=== PATIENT | male | born 1985 | race African-American/Black ===

== ENCOUNTER 2019-06-18 18:10 | Emergency (ER) | payer SELFPAY ==
[2019-06-18] MEDS ORDERED: Alum Hydrox/Mag Hydrox/Simeth 30 ML, Lidocaine 2% 15 ML PO ONE ×2 (18:41)
[2019-06-18] MEDS ORDERED: Metoclopramide 10 MG Tab PO ONE (18:42)
--- NOTE | 2019-06-18 18:48 | EDM.PDOC ---
ED HPI GENERAL MEDICAL PROBLEM - General Chief Complaint: Abdominal Pain Stated Complaint: ABDOMINAL PAIN Time Seen by Provider: 06/18/19 18:19 Source of Information: Reports: Patient, Old Records, RN Notes Reviewed History Limitations: Reports: No Limitations - History of Present Illness INITIAL COMMENTS - FREE TEXT/NARRATIVE: Patient is a 33-year-old male who presents to the ED for evaluation of abdominal pain. Patient states he has not had a regular bowel movement for the past 3 or 4 days. He states he feels very bloated, and he feels as if his stomach feels unsettled or has diffuse stomach upset. He is still able to pass gas, and he states that this is very foul-smelling. He notes that he is having some increased belching, and he feels as if he is not digesting his food properly. He states that he is still belching up the meal from last night. He denies any abdominal pain, and characterizes just of generalized abdominal discomfort. He has been taking Pepto-Bismol, omeprazole, other over-the- counter laxatives for management of this, however it is not provided much relief. The patient states that he has been trying to increase his fiber intake , he states a regular today would include cereal in the morning with some apples and bananas, veggies salads, rice beans. He states he does not eat a lot of junk food, as he knows that can make you gain weight. He notes that he drinks around 6 or 7 bottles of the 16 ounce aldana daily. He denies any fevers or chills, chest pain, shortness of breath, vomiting or diarrhea, he complains mostly of nausea and generalized abdominal discomfort. He has not been seen in the clinic for this at all. He notes that this has been going on for around 6 months now. He used to be able to have a regular bowel movement daily, and now he states sometimes it can be up to one week for he has a bowel movement. Other Treatments [employer]: pepto-bismol; flaju( med) clear lax - Related Data Allergies Allergy/AdvReac Type Severity Reaction Status Date / Time No Known Allergies Allergy Verified 08/18/18 23:18 Home Meds: Home Meds . 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 Neurological History: Reports: Other (See Below) - Past Surgical History Neurological Surgical History: Reports: Thoracic Spine Social & Family History - Family History Family Medical History: Noncontributory - Tobacco Use Smoking Status *Q: Never Smoker - Caffeine Use Caffeine Use: Reports: None - Recreational Drug Use Recreational Drug Use: No ED ROS GENERAL - Review of Systems Review Of Systems: See Below Constitutional: Denies: Fever, Chills, Malaise, Decreased Appetite HEENT: Reports: No Symptoms Respiratory: Denies: Shortness of Breath Cardiovascular: Denies: Chest Pain Endocrine: Reports: No Symptoms GI/Abdominal: Reports: Abdominal Pain (generalized abd discomfort), Constipation (last BM 3 or 4 days ago), Nausea. Denies: Diarrhea, Vomiting : Denies: Dysuria Musculoskeletal: Reports: No Symptoms Skin: Reports: No Symptoms Neurological: Reports: No Symptoms Psychiatric: Reports: No Symptoms ED EXAM, GI/ABD - Physical Exam Exam: See Below Exam Limited By: No Limitations General Appearance: Alert, WD/WN, No Apparent Distress Throat/Mouth: Normal Inspection, Normal Lips, Normal Teeth, Normal Gums, Normal Oropharynx, Normal Voice, No Airway Compromise Respiratory/Chest: No Respiratory Distress, Lungs Clear, Normal Breath Sounds, No Accessory Muscle Use, Chest Non-Tender Cardiovascular: Normal Peripheral Pulses, Regular Rate, Rhythm, No Murmur GI/Abdominal Exam: Normal Bowel Sounds, Soft, Non-Tender, No Distention, No Mass Extremities: Normal Inspection, Normal Capillary Refill Neurological: Alert, Oriented, Normal Cognition, No Motor/Sensory Deficits Psychiatric: Normal Affect, Normal Mood Skin Exam: Warm, Dry, Intact, Normal Color, No Rash Course - Vital Signs Last Recorded V/S: Last Vital Signs Temp 98.6 F 06/18/19 18:24 Pulse 62 06/18/19 18:24 Resp 20 06/18/19 18:24 BP 111/74 06/18/19 18:24 Pulse Ox 98 06/18/19 18:24 - Orders/Labs/Meds Orders: Active Orders 24 hr Category Date Time Status KUB [Abdomen 1V Flat] [CR] Stat Exams 06/18/19 18:41 Ordered Meds: Medications Discontinued Medications Generic Name Dose Route Start Last Admin Trade Name Anjana PRN Reason Stop Dose Admin Al Hydroxide/Mg Hydroxide 30 0 ml 06/18/19 18:41 06/18/19 18:46 ml/ Lidocaine HCl 15 ml PO 06/18/19 18:42 45 ml ONETIME ONE Administration Metoclopramide HCl 10 mg 06/18/19 18:42 06/18/19 18:46 Reglan PO 06/18/19 18:43 10 mg ONETIME ONE Administration - Re-Assessments/Exams Free Text/Narrative Re-Assessment/Exam: 06/18/19 18:48 Patient resents to the ED for the evaluation of abdominal pain. It is likely that the gentleman is suffering from constipation, it is likely his upper GI symptoms are of a GERD type nature. Patient states he was taking omeprazole, but that did not seem to be helping his symptoms, so he ceased taking this. I did order a GI cocktail, a KUB x-ray to be obtained. He appears to have a fairly healthy diet and is trying to keep himself well-hydrated. We did discuss the possibility of outpatient EGD and colonoscopy, but I would suggest that he follow up with Vickie Saavedra in clinic and at least get a GI referral. 06/18/19 19:33 Patient KUB is done, and demonstrates a diffuse amount of stool throughout the colon, with lots of air in the rectum. Will send the patient home with a bottle mag citrate, and other general recommendations as noted above. Departure - Departure Time of Disposition: 19:35 Disposition: Home, Self-Care 01 Condition: Fair Clinical Impression: Nausea Constipation Qualifiers: Constipation type: unspecified constipation type Qualified Code(s): K59.00 - Constipation, unspecified - Discharge Information *PRESCRIPTION DRUG MONITORING PROGRAM REVIEWED*: No *COPY OF PRESCRIPTION DRUG MONITORING REPORT IN PATIENT CARMEN: No Instructions: Probiotics, Constipation, Adult, [id number] Referrals: PCP,None [Primary Care Provider] - Forms: ED Department Discharge Additional Instructions: You were evaluated in the ED today for your feelings of constipation and nausea. Your abdomen x-ray did demonstrate a diffuse amount of stool throughout the colon, you have been given a bottle of magnesium citrate to take at home, please drink one half bottle, wait a few hours to see if this does not provide a large bowel movement, and then repeat the other half bottle if no results. Recommend that you take MiraLAX on a daily basis, to keep your stool soft and regular. Recommend that you start taking some probiotics in your diet, you may obtain these from any pharmacist at any pharmacy, or inquire about them and they will direct you to the appropriate aisle. As you already doing so, maintain a healthy diet that includes increase fiber, increase fluids, and vegetables. Regarding the acid reflux or regurgitation, it is recommended that you take a medication like omeprazole daily to help guard against the symptoms, if omeprazole is not working for you, please take a medicine like it, they should be next to each other in the heartburn aisle. You will need to follow up with your primary care provider, Vickie Saavedra, regarding a possible GI referral and further diagnostic testing like an EGD or colonoscopy to further evaluate your symptoms. Please return to the ED if your symptoms should change or worsen. - My Orders Last 24 Hours: My Active Orders 06/18/19 18:41 KUB [Abdomen 1V Flat] [CR] Stat - Assessment/Plan Last 24 Hours: My Active Orders 06/18/19 18:41 KUB [Abdomen 1V Flat] [CR] Stat
[2019-06-18] MEDS ORDERED: Magnesium Citrate Solution 296 ML Bottle PO ONE (19:34)
--- NOTE | 2019-06-19 07:33 | CR ---
Abdomen: Supine view of the abdomen was obtained. Comparison: Prior abdominal x-ray of 08/19/18. Previous lower thoracic and upper lumbar spine surgery are noted. Bowel gas pattern is normal. No abnormal calcifications or soft tissue abnormality is seen. Bony structures show nothing acute. Impression: 1. Nothing acute is seen on supine abdominal x-ray. Diagnostic code #2
== END 2019-06-18 19:54 | disposition home or self-care (01) ==
LOC: JD.ED 18:10
DX: K59.00 Constipation, unspecified (principal); R11.0 Nausea
CPT/HCPCS: 74018; 99284; A9270

== ENCOUNTER 2021-06-24 20:22 | Emergency (ER) | payer BC ==
--- NOTE | 2021-06-24 21:36 | EDM.PDOC ---
ED HPI GENERAL MEDICAL PROBLEM - General Chief Complaint: Gastrointestinal Problem Stated Complaint: BLOATED/ABDOMINAL PAIN Time Seen by Provider: 06/24/21 21:36 Source of Information: Reports: Patient History Limitations: Reports: No Limitations - History of Present Illness INITIAL COMMENTS - FREE TEXT/NARRATIVE: Patient is a 35-year-old male presenting to the emergency room with a complaint of frequent belching. Patient reports the symptoms have been ongoing for the past 8 months. He states sometimes he will belch 500 times per day. Today, he continued with his belching and had 1 or 2 episodes of vomiting. He is still able to eat and drink normally but they seem to last all day every day. He has never sought medical attention previously. He denies any fevers, chills or diarrhea. Patient does have normal bowel movements. He reports using omeprazole and [place] with no relief. 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 Neurological History: Reports: Other (See Below) - Infectious Disease History Infectious Disease History: Reports: None - Past Surgical History Neurological Surgical History: Reports: Thoracic Spine Social & Family History - Family History Family Medical History: No Pertinent Family History - Tobacco Use Tobacco Use Status *Q: Former Tobacco User Used Tobacco, but Quit: No - Caffeine Use Caffeine Use: Reports: Energy Drinks - Recreational Drug Use Recreational Drug Use: No ED ROS GENERAL - Review of Systems Review Of Systems: See Below Free Text/Narrative/Comment: In addition to that documented in the HPI above, the additional ROS was obtained: Constitutional: Denies fevers or chills Eyes: Denies vision changes ENMT: Denies sore throat CV: Denies chest pain Resp: Denies SOB GI: Per HPI : Denies painful urination MSK: Denies recent trauma Skin: Denies new rashes Neuro: Denies new numbness or tingling or weakness Endocrine: Denies unexpected weight loss Heme: Denies bleeding disorders ED EXAM, GI/ABD - Physical Exam Exam: See Below Text/Narrative:: I have reviewed the triage vital signs Const: Well nourished, well developed, appears stated age Eyes: Pupils Equal and reactive to light bilaterally, no conjunctival injection HENT: No signs of trauma or swelling, Neck supple without meningismus CV: Regular Rate Rhythm, Warm, well-perfused extremities RESP: Unlabored respiratory effort GI: soft, non-tender, non-distended, no masses MSK: No gross deformities appreciated Skin: Warm, dry. 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 Sensation and motor function of extremities grossly intact. Psych: Appropriate mood and affect. Course - Vital Signs Last Recorded V/S: Last Vital Signs Temp 37.0 C 06/24/21 20:58 Pulse 84 06/24/21 20:58 Resp 18 06/24/21 20:58 BP 102/75 06/24/21 20:58 Pulse Ox 95 06/24/21 20:58 - Orders/Labs/Meds Labs: Laboratory Tests 06/24/21 06/24/21 Range/Units 21:49 21:49 WBC 12.29 H (4.23-9.07) K/mm3 RBC 4.37 L (4.63-6.08) M/mm3 Hgb 14.1 D (13.7-17.5) gm/dl Hct 42.0 (40.1-51.0) % MCV 96.1 H (79.0-92.2) fl MCH 32.3 H (25.7-32.2) pg MCHC 33.6 (32.2-35.5) g/dl RDW Std Deviation 41.2 (35.1-43.9) fL Plt Count 169 (163-337) K/mm3 MPV 11.2 (9.4-12.3) fl Neut % (Auto) 89.5 H (34.0-67.9) % Lymph % (Auto) 4.6 L (21.8-53.1) % [place] % (Auto) 5.4 (5.3-12.2) % Eos % (Auto) 0.2 L (0.8-7.0) Baso % (Auto) 0.1 (0.1-1.2) % Neut # (Auto) 10.99 H (1.78-5.38) K/mm3 Lymph # (Auto) 0.57 L (1.32-3.57) K/mm3 [place] # (Auto) 0.66 (0.30-0.82) K/mm3 Eos # (Auto) 0.03 L (0.04-0.54) K/mm3 Baso # (Auto) 0.01 (0.01-0.08) K/mm3 Sodium 140 (136-145) mEq/L Potassium 4.3 (3.5-5.1) mEq/L Chloride 104 (98-107) mEq/L Carbon Dioxide 30 (21-32) mEq/L Anion Gap 10.3 (5-15) BUN 17 (7-18) mg/dL Creatinine 1.0 (0.7-1.3) mg/dL Est Cr Clr Drug Dosing 99.75 mL/min Estimated GFR (MDRD) > 60 (>60) mL/min BUN/Creatinine Ratio 17.0 (14-18) Glucose 99 (70-99) mg/dL Calcium 8.9 (8.5-10.1) mg/dL Total Bilirubin 0.8 (0.2-1.0) mg/dL AST 71 H (15-37) U/L ALT 52 (16-63) U/L Alkaline Phosphatase 54 (46-116) U/L Total Protein 7.5 (6.4-8.2) g/dl Albumin 3.9 (3.4-5.0) g/dl Globulin 3.6 gm/dL Albumin/Globulin Ratio 1.1 (1-2) Lipase 117 (73-393) U/L Departure - Departure Time of Disposition: 21:40 Disposition: Eloped 07 Clinical Impression: Nausea - Discharge Information Referrals: PCP,None [Primary Care Provider] - Forms: ED Department Discharge Sepsis Event Note (ED) - Evaluation Sepsis Screening Result: No Definite Risk - Focused Exam Vital Signs: Vital Signs Temp Pulse Resp BP Pulse Ox 06/24/21 20:58 37.0 C 84 18 102/75 95
== END 2021-06-24 22:01 | disposition left against medical advice (07) ==
LOC: JD.ED 20:22
DX: R11.0 Nausea (principal); Z87.891 Personal history of nicotine dependence
CPT/HCPCS: 36415; 80053; 83690; 85025; 99283

== ENCOUNTER 2021-06-24 23:11 | Emergency (ER) | payer BC ==
--- NOTE | 2021-06-24 23:49 | EDM.PDOC ---
ED HPI GENERAL MEDICAL PROBLEM - General Chief Complaint: Abdominal Pain Stated Complaint: TEST RESULTS Time Seen by Provider: 06/24/21 23:45 Source of Information: Reports: Patient - History of Present Illness INITIAL COMMENTS - FREE TEXT/NARRATIVE: See initial chart for HPI and ROS and physical exam. Patient returns only for results and we discussed these. 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 Neurological History: Reports: Other (See Below) - Infectious Disease History Infectious Disease History: Reports: None - Past Surgical History Neurological Surgical History: Reports: Thoracic Spine Social & Family History - Family History Family Medical History: No Pertinent Family History - Caffeine Use Caffeine Use: Reports: Energy Drinks ED ROS GENERAL - Review of Systems Review Of Systems: See Below ED EXAM, GI/ABD - Physical Exam Exam: See Below Course - Vital Signs Last Recorded V/S: Last Vital Signs Temp 36.6 C 06/24/21 23:44 Pulse 80 06/24/21 23:44 Resp 18 06/24/21 23:44 BP 105/74 06/24/21 23:44 Pulse Ox 100 06/24/21 23:44 Departure - Departure Time of Disposition: 23:45 Disposition: Home, Self-Care 01 Clinical Impression: Nausea - Discharge Information Prescriptions: Ondansetron [Zofran ODT] 4 mg PO Q6H PRN #12 tab.dis PRN Reason: Nausea Instructions: Nausea and Vomiting, Adult, [id number] Referrals: PCP,None [Primary Care Provider] - Forms: ED Department Discharge Additional Instructions: I recommend following up with the [facility] gastroenterology (GI) clinic. They can be reached directly at [phone]. Please schedule an appointment with him as soon as possible. Return to the emergency room immediately should pain develop or you have inability to keep down food or liquids. Otherwise, I recommend continuation of omeprazole and will provide a prescription for Zofran as well as should nausea or vomiting become an issue. Sepsis Event Note (ED) - Focused Exam Vital Signs: Vital Signs Temp Pulse Resp BP Pulse Ox 06/24/21 23:44 36.6 C 80 18 105/74 100 - Assessment/Plan Assessment:: Patient is 35-year-old male with a known planing of belching for 8 months. Despite the chronicity of patient's symptoms, he is extremely concerned that th is will affect his vacation upcoming. He states he leaves in 7 days to [place] before flying to [facility]. He states he would like this to be evaluated and treated expeditiously. However, laboratory studies are no significant findings. His abdominal exam is completely benign and I have no concerns about bowel obstruction at this time. He could have an issue with gastric reflux but I think ultimately he would benefit from GI evaluation. We discussed this and he was given appropriate referral. Addressed all his questions and gave him appropriate return precautions.
== END 2021-06-24 23:55 | disposition home or self-care (01) ==
LOC: JD.ED 23:11
DX: R11.0 Nausea (principal)
CPT/HCPCS: 99281